=== PATIENT | female | born 1985 | race Hispanic/Latino ===

== ENCOUNTER 2023-07-11 08:08 | Inpatient (IN) | payer OTHER, SELFPAY ==
--- NOTE | ~2023-07-11 | CT_ITS ---
EXAMINATION: CT abdomen pelvis w con DATE: 07/11/2023 10:02 INDICATION: Upper abdominal pain TECHNIQUE: Computed tomography (CT) of the abdomen and pelvis was performed without intravenous contr ast. Automated exposure control and iterative reconstruction technique were employed. The dose-length product was 1506.13 mGy-cm. COMPARISON: None FINDINGS: Mild dependent atelectasis in the bilateral lower lobes. Heart size is normal. No pericardial or pleu ral effusion. Diffuse hepatic steatosis. Gallbladder, spleen, bilateral adrenal glands are normal. Th ere are retained lobulations of both kidneys. Nonobstructing 3 mm stone at a lower pole calyx o f the left kidney. 1 cm cyst at the lower pole of the right kidney. There is inflammatory stranding s urrounding the body and tail of the pancreas consistent with acute interstitial pancreatitis. There i s normal pancreatic parenchymal enhancement with no necrosis. No discrete peripancreatic fluid collec tions. Bowels including the appendix are normal. Small fat-containing umbilical hernia. Bladder is no rmal. T-shaped IUD in expected position within the anteverted uterus. Bilateral adnexa are unremarkab le. No free intraperitoneal gas or fluid. No pathologically enlarged abdominal or pelvic lymphadenopa thy. Mild thoracic and lumbar spondylosis. IMPRESSION: 1. Radiographically uncomplicated acute interstitial pancreatitis. 2. Mild diffuse hepatic steatosis. 3. IUD in expected position. 4. Small fat-containing umbilical hernia. Reviewed, dictated and finalized at location A.
--- NOTE | ~2023-07-11 | XR_ITS ---
XR ankle RT 2V 07/12/2023 13:38 INDICATION: Diabetes. Right lateral malleolus tenderness PROCEDURE: 2 views right ankle COMPARISON: No prior studies FINDINGS: Fracture, dislocation or subluxation is not identified. The soft tissues appear within norm al limits. No foreign bodies are identified. Ankle mortise intact. IMPRESSION: 1: NO ACUTE BONE OR JOINT ABNORMALITY IDENTIFIED. Reviewed, dictated and finalized at location A.
[2023-07-11 08:11] VITALS: BP 180/97; PULSE 103; RESP 20; TEMP 36.8; O2SAT 100
[2023-07-11] MEDS: SODIUM CHLORIDE 0.9% IV 1,000 ML 999 ML IV CONT ×2 (08:57→10:55)
--- NOTE | 2023-07-11 09:05 | ED.ABDPAIN ---
HPI - Abdominal Pain General Chief Complaint: Abdominal Pain Stated Complaint: vomiting Time Seen by Provider: 07/11/23 08:28 History of Present Illness HPI narrative: 37-year-old female history of diabetes and pancreatitis presented the emergency department for evaluation of increased left upper and epigastric abdominal pain. Patient states the pain feels similar to her previous pancreatitis. Patient does report associated nausea and vomiting. Patient reports the pain started last night. Patient denies any radiation of the pain to her back. Patient states she does not drink alcohol and has no prior history of gallbladder disease. Related Data Home Medications Medication Instructions Recorded Confirmed No Home Medications 07/11/23 07/11/23 Allergies Allergy/AdvReac Type Severity Reaction Status Date / Time No Known Allergies Allergy Verified 07/11/23 08:56 Review of Systems Review of Systems: All systems reviewed & are unremarkable except as noted in HPI and below PMFSH Social History Social History Smoking status: Never smoker Alcohol intake: never Substance use: never Lack of Transportation: No Lack of Food: Never True Current Housing: I Have Housing Concerned About Future Housing: No Difficulty Paying Gas/Electric Bills: No Difficulty Paying for Meds: No Currently Unemployed: No Education: Decline to Answer Difficulty w/ Childcare or Family Care: No Spiritual care concerns: No Exam Narrative: APPEARANCE: Well appearing, no pain, no distress, well-nourished. HEAD: normocephalic, atraumatic. EYES: PERRLA/EOMI, conjunctivae clear. NOSE: Normal no drainage NECK: Supple. No adenopathy, no masses. RESPIRATORY: Airway patent, respirations nonlabored. Clear to auscultation bilaterally, no rales, rhonchi, wheezing. CARDIOVASCULAR: Regular rate and rhythm without murmurs rubs or gallops. ABDOMINAL: Soft, epigastric and left upper quadrant tenderness to palpation MUSCULOSKELETAL: Moves all extremities. Strength/ROM intact, No edema, No calf tenderness. NEURO: Alert. Cranial nerves II through XII intact. Grossly intact SKIN: Warm, dry. Normal Color Course Course Emergency Course: 29-year-old female history of diabetes and pancreatitis presented the emergency department for evaluation epigastric left upper quadrant pain. Patient was treated with IV fluids, IV Zofran, IV Dilaudid and IV Protonix. CT scan was ordered to evaluate for necrotizing pancreatitis. Patient is afebrile but does have a leukocytosis of 12.7. Hemoglobin stable 11.4. Lipase was elevated at 1944, lactic acid was elevated at 2.2. Patient was treated with 2 L of normal saline. CT scan did show evidence of uncomplicated pancreatitis. Patient was updated on the results of her work-up and was offered admission but patient states she is unable to stay. Patient was educated on reasons to return to the emergency department. Patient was advised to follow a clear liquid diet provided medications for pain control. Prior to leaving [place] the patient did decide to stay. Case was discussed with the hospitalist and patient was admitted. Patient was stable at time of admission. Vital Signs Vital signs: Vital Signs Temperature 98.3 F 07/11/23 08:11 Pulse Rate 103 H 07/11/23 08:11 Respiratory Rate 20 07/11/23 08:11 Blood Pressure 180/97 H 07/11/23 08:11 Pulse Oximetry 100 07/11/23 08:11 Oxygen Delivery Room Air 07/11/23 08:11 Temperature 97.8 F 07/11/23 15:50 Pulse Rate 110 H 07/11/23 15:50 Respiratory Rate 18 07/11/23 15:50 Blood Pressure 152/102 H 07/11/23 15:50 Pulse Oximetry 95 07/11/23 15:50 Oxygen Delivery Room Air 07/11/23 17:39 MDM - Abdominal Pain Differential Diagnosis Differential diagnosis: Likely abdominal pain, acute appendicitis, calculus of kidney, constipation, diverticulitis, endometriosis, gastroenteritis, pancreatitis and small bowel obstruction Lab D
[2023-07-11 09:20] LABS: Basophils Absolute Auto 0.1 K/mm3 (0.0-0.1); Basophils Percent Auto 0.4 % (0.2-1.2); Eosinophils Percent Auto 0.2 % (0-4.4); Hematocrit 35.1 % (37.0-47.0); Hemoglobin 11.4 g/dL (12.0-15.0); Immature Granulocyte Absolute 0.07 K/mm3 (0.00-0.031); Immature Granulocyte Percent A 0.6 % (0-0.5); Lymphocytes Absolute Auto 0.91 K/mm3 (0.9-3.2); Lymphocytes Percent Auto 7.2 % (18.3-44.2); Mean Corpuscular HGB Conc 32.5 g/dl (32-36); Mean Corpuscular Hemoglobin 23.7 pg (26-34); Mean Corpuscular Volume 72.8 fl (80-100); Mean Platelet Volume 10.1 fl (7.4-10.4); Monocytes Absolute Auto 0.4 K/mm3 (0.1-0.6); Monocytes Percent Auto 3.5 % (2.6-8.5); Neutrophils Absolute Auto 11.2 K/mm3 (1.3-6.7); Neutrophils Percent Auto 88.1 % (45.5-73.1); Platelet Count Result 278 k/mm3 (150-375); Red Blood Count 4.82 M/mm3 (4.2-5.4); Red Cell Distribution Width 15.4 % (11.5-14.5); White Blood Count 12.7 K/mm3 (4.5-10.0)
[2023-07-11 09:20] LABS: Appearance Urine Clear (Clear); Bacteria Urine Rare /hpf; Bilirubin Urine Negative (Negative); Blood Urine 1+ (Negative); Budding Yeast Urine Present /hpf; Color Urine Yellow (Yellow); Glucose Urine UA 3+ mg/dL (Negative); Ketones Urine 3+ mg/dL (Negative); Leukocyte Esterase Ur 1+ LEU/UL (Negative); Nitrate Urine Negative (Negative); Non Pathogenic Casts 0-2; Protein Urine 2+ mg/dL (Negative); Specific Grav Ur 1.027 (1.001-1.035); Squamous Epithelial Cell Urine Occasional /hpf (Few); Urobilinogen Urine 0.2 mg/dL (<2.0); WBC Urine 21-50 /hpf; pH Urine 6.5 (5.0-9.0)
[2023-07-11] MEDS: HYDROmorphone HCL INJ (*CRX) 1 MG/ML SYR 0.5 MG IV PUSH ×3 (09:24→15:25)
[2023-07-11] MEDS: ONDANSETRON INJ 4 MG/2 ML VIAL IV PUSH (09:24)
[2023-07-11] MEDS: PANTOPRAZOLE SODIUM IV 40 MG VIAL IV PUSH (09:24)
[2023-07-11 09:29] LABS: Lactic Acid Reflex 2.2 mmol/L (0.7-2.0)
[2023-07-11 09:31] LABS: Add Urine Microscopic? YES
[2023-07-11 09:32] VITALS: BP 151/93; PULSE 111; RESP 13
[2023-07-11 09:33] LABS: INR 0.8; Prothrombin Time 11.9 Seconds (11.1-14.7)
[2023-07-11 09:34] LABS: Partial Thromboplastin Time 24.9 SECONDS (22.3-36.8)
[2023-07-11 09:47] LABS: Alanine Aminotransferase 14 U/L (6-35); Albumin Level 3.6 g/dL (3.5-5.1); Alkaline Phosphatase 106 U/L (38-126); Anion Gap 12 mmol/L (8-16); Aspartate Amino Transferase 22 U/L (14-36); Bilirubin,Total 0.7 mg/dL (0.2-1.3); Blood Urea Nitrogen 11 mg/dL (7-17); Calcium 8.1 mg/dL (8.4-10.2); Carbon Dioxide 19 mmol/L (22-30); Chloride 100 mmol/L (98-107); Estimated CRCL calculation 150 ml/min; Estimated Glomerular Filt Rate > 60; Glucose 351 mg/dL (65-110); Lipase 1944 U/L (23-300); Potassium 4.1 mmol/L (3.4-5.0); Sodium 131 mmol/L (137-145)
[2023-07-11 09:58] LABS: Anisocytosis 3+ (NORMAL); Microcytosis 3+ (NORMAL); Platelet Estimate Adequate (Adequate); Schistocytes None Seen (NORMAL)
[2023-07-11] MEDS: SODIUM CHLORIDE 0.9% IV 1,000 ML 125 ML IV CONT (11:33)
[2023-07-11 12:17] LABS: Reflex Lactic Acid Yes or No Add Lactic
[2023-07-11 12:56] LABS: Lactic Acid 1.3 mmol/L (0.7-2.0)
[2023-07-11 14:29] VITALS: BP 154/98; PULSE 112; RESP 18; TEMP 36.7; O2SAT 96
[2023-07-11 14:40] LABS: Glucose Point of Care 300 mg/dl (65-105)
[2023-07-11 15:28] VITALS: BMI 37.3
--- NOTE | 2023-07-11 15:30 | ADMGEN ---
This patient, Camille Epperson, was admitted to 3 [facility] Surg Room 327-01. Patient/family oriented to hospital policies and general routines including ID bracelet, bed and alarms, visiting hours, pain management, procedures, bathroom and other care routines, personal items, smoking policy, room service/diet, and visiting hours. Information on how to activate the Rapid Response Team has been discussed. Patient/Family are encouraged to report perceived risks to care and to ask questions if they do not understand what they are told or what they should do.
[2023-07-11 15:50] VITALS: BP 152/102; PULSE 110; RESP 18; TEMP 36.6; O2SAT 95
--- NOTE | 2023-07-11 17:56 | PM.IMHP ---
H&P: HPI History of Present Illness Date/Time: 07/11/23 17:56 Chief Complaint: Abdominal Pain, N/V Narrative: 37-year-old female presents here with left upper quadrant pain with past medical history of HTN, diabetes, GERD, and pancreatitis. Patient presents here with 24 hours of left upper quadrant pain and nausea/vomiting. She denies diarrhea, current alcohol use, or history of gallbladder surgery/disease/complications. ED workup revealed CT findings of acute interstitial pancreatitis with mild diffuse hepatic steatosis. Patient reports her last pancreatic flare was in 2017. Concerned for attack this past March, however was ruled out and she was informed she had GERD. she is currently denying abdominal tenderness due to pain medication administration. Has been able to tolerate clear liquids and is denying any current nausea. Has been previously told that her pancreatitis is likely due to her diabetes. She also reports that she has not been able to get her medication filled since last October. She missed an appointment with her primary and when she called to reschedule the appointment she was not able to get a hold of anybody in the office. She eventually gave up and has not had her amlodipine, metformin, losartan, or fenofibrate since. patient is also endorsing vaginal pruritus. States that it itches so much that she has given herself small abrasions. Denies any blistering, nodules, abnormal discharge. Review of Systems Review of Systems: All systems reviewed & are unremarkable except as noted in HPI and below PMFSH Past Medical History Medical History Diabetes type 2, uncontrolled GERD (gastroesophageal reflux disease) HTN (hypertension) Pancreatitis Social History Social History (Updated 07/11/23 @ 22:20 by Milena Chappell APRN) Social History: Currently lives at home with her and 2 daughters. Surrogate decision maker: Karl Epperson Code status: Full Code Smoking status: Never smoker Alcohol intake: never Substance use: never Lack of Transportation: No Lack of Food: Never True Current Housing: I Have Housing Concerned About Future Housing: No Difficulty Paying Gas/Electric Bills: No Difficulty Paying for Meds: No Currently Unemployed: No Education: Decline to Answer Difficulty w/ Childcare or Family Care: No Spiritual care concerns: No Meds Home Medications and Allergies Home Medications Medication Instructions Recorded Confirmed Type No Home Medications 07/11/23 07/11/23 History Allergies Allergy/AdvReac Type Severity Reaction Status Date / Time No Known Allergies Allergy Verified 07/11/23 08:56 Vital Signs Vital Signs - 24 hr 07/11/23 08:11 07/11/23 09:32 07/11/23 14:29 Temperature 98.3 F 98.1 F Pulse Rate 103 H 111 H 112 H Respiratory Rate 20 13 18 Blood Pressure 180/97 H 151/93 H 154/98 H Pulse Oximetry 100 96 Oxygen Delivery Room Air 07/11/23 15:50 07/11/23 17:39 Temperature 97.8 F Pulse Rate 110 H Respiratory Rate 18 Blood Pressure 152/102 H Pulse Oximetry 95 Oxygen Delivery Room Air Exam Narrative: resting in hospital bed, at bedside. Const: General: comfortable and no acute distress HENMT: Mouth: Yes moist mucous membranes Eyes: General: appearance normal, both eyes and all related structures Sclera: sclerae normal Pupils: Equal, round and reactive pupils present Resp: Effort & Inspection: normal respiratory effort Auscultation: clear to auscultation bilaterally Cardio: Rate: regular rate Rhythm: regular rhythm Other: S1-S2 present without murmur, rub, ectopy GI: GI Palp: Yes Soft to palpation Auscultation: normal bowel sounds Other: Nontender, no guarding. Skin: General skin exam: normal color and no rashes or lesions noted Wounds: no wounds Neuro: Speech: normal speech Sensory Exam: normal sens
[2023-07-11] MEDS: amLODIPine BESYLATE 2.5 MG TABLET PO (18:37)
[2023-07-11] MEDS: FLUCONAZOLE 150 MG TABLET PO (18:37)
[2023-07-11 19:58] VITALS: BP 167/98; PULSE 109; RESP 18; TEMP 36.6; O2SAT 99
[2023-07-11] MEDS: ACETAMINOPHEN 500 MG TABLET PO (20:26)
[2023-07-11] MEDS: INSULIN ASPART (*BKC) 100 UNITS/ML SUB-Q (20:26)
[2023-07-11 20:40] LABS: Glucose Point of Care 292 mg/dl (65-105)
[2023-07-11 21:50] VITALS: O2SAT 98
[2023-07-12] MEDS: HYDROmorphone HCL INJ (*CRX) 1 MG/ML SYR 0.5 MG IV PUSH ×2 (04:50→13:12)
[2023-07-12 06:00] VITALS: BP 157/84; PULSE 103; RESP 16; TEMP 36.4; O2SAT 94
[2023-07-12 07:52] LABS: Hematocrit 32.3 % (37.0-47.0); Hemoglobin 9.6 g/dL (12.0-15.0); Mean Corpuscular HGB Conc 29.7 g/dl (32-36); Mean Corpuscular Hemoglobin 21.7 pg (26-34); Mean Corpuscular Volume 73.1 fl (80-100); Mean Platelet Volume 9.9 fl (7.4-10.4); Platelet Count Result 253 k/mm3 (150-375); Red Blood Count 4.42 M/mm3 (4.2-5.4); Red Cell Distribution Width 15.5 % (11.5-14.5); White Blood Count 11.7 K/mm3 (4.5-10.0)
[2023-07-12 08:01] LABS: Alanine Aminotransferase 10 U/L (6-35); Albumin Level 3.4 g/dL (3.5-5.1); Alkaline Phosphatase 89 U/L (38-126); Anion Gap 7 mmol/L (8-16); Aspartate Amino Transferase 17 U/L (14-36); Bilirubin,Total 0.8 mg/dL (0.2-1.3); Blood Urea Nitrogen 8 mg/dL (7-17); Calcium 8.2 mg/dL (8.4-10.2); Carbon Dioxide 21 mmol/L (22-30); Chloride 103 mmol/L (98-107); Estimated CRCL calculation 183 ml/min; Estimated Glomerular Filt Rate > 60; Glucose 281 mg/dL (65-110); Lipase 475 U/L (23-300); Potassium 3.7 mmol/L (3.4-5.0); Sodium 131 mmol/L (137-145)
[2023-07-12] MEDS: amLODIPine BESYLATE 2.5 MG TABLET PO (08:19)
[2023-07-12] MEDS: ENOXAPARIN 40 MG/0.4 ML SYRINGE SUB-Q (08:19)
[2023-07-12] MEDS: metFORMIN HCL 500 MG TABLET PO (08:19)
[2023-07-12] MEDS: FENOFIBRATE 160 MG TABLET PO (08:19)
[2023-07-12 08:23] LABS: Hemoglobin A1C 12.5 % (<5.7)
[2023-07-12] MEDS: INSULIN ASPART (*BKC) 100 UNITS/ML SUB-Q ×2 (08:23→12:17)
[2023-07-12 08:39] LABS: Glucose Point of Care 272 mg/dl (65-105)
[2023-07-12 11:39] LABS: Glucose Point of Care 312 mg/dl (65-105)
--- NOTE | 2023-07-12 12:28 | PM.IMPN ---
Progress Note: A&P Assessment and Plan (1) Pancreatitis: Code(s): K85.90 - Acute pancreatitis without necrosis or infection, unspecified Status: Acute Assessment and Plan: 1. pancreatitis CT abd/pelvis w con 1. Radiographically uncomplicated acute interstitial pancreatitis. 2. Mild diffuse hepatic steatosis. 3. IUD in expected position. 4. Small fat-containing umbilical hernia. Dilaudid 0.5 mg p.r.n. and TYL p.r.n. fluid resuscitated in the emergency department w/2L NS, NS now infusing at 125 mL/hour Zofran p.r.n. advanced diet as tolerated recheck cbc, cmp, lipase in AM (2) HTN (hypertension): Code(s): I10 - Essential (primary) hypertension Status: Acute Assessment and Plan: 2. HTN previously on amlodipine 2.5 mg daily and losartan 100 mg daily will restart amlodipine 2.5 mg daily, assess for toleration monitor blood pressure (3) Diabetes type 2, uncontrolled: Status: Acute Assessment and Plan: 3. diabetes, type 2 hypoglycemia protocol POC blood glucose ACHS correct regimen ordered - low dose TIDWM and HS A1C 12.5% Metformin 1000 mg BID Lantus 10 units HS (4) Vaginal itching: Code(s): N89.8 - Other specified noninflammatory disorders of vagina Status: Acute Assessment and Plan: 4. vaginal itching clinical impression of candidal vulvovaginitis Diflucan 150 mg PO x1 administered patient educated to follow up with Women's Health provider or PCP if symptoms do not resolve (5) Hyperlipidemia: Code(s): E78.5 - Hyperlipidemia, unspecified Status: Acute Assessment and Plan: Chronic Conditions - HLD: restart fenofibrate, lipid panel ordered (6) UTI (urinary tract infection): Code(s): N39.0 - Urinary tract infection, site not specified Status: Acute Assessment and Plan: U/A with WBC, +1 Leukocyte, and rare bacteria and large presence of glucose active yeast infection could have UTI as well Rocephin added Plan Diet: advanced as tolerated GI Prophylaxis: not currently indicated DVT Prophylaxis: SCDs, Lovenox 40 Lines: pIV Code Status: Full Code Subjective Date/time seen: 07/12/23 12:28 Interval history: HPI obtained from chart, 37-year-old female presents here with left upper quadrant pain with past medical history of HTN, diabetes, GERD, and pancreatitis. Patient presents here with 24 hours of left upper quadrant pain and nausea/vomiting.? She denies diarrhea, current alcohol use, or history of gallbladder surgery/disease/complications. ? ED workup revealed CT findings of acute interstitial pancreatitis with mild diffuse hepatic steatosis.? Patient reports her last pancreatic flare was in 2018.? Concerned for attack this past March, however was ruled out and she was informed she had GERD.? she is currently denying abdominal tenderness due to pain medication administration.? Has been able to tolerate clear liquids and is denying any current nausea. ? Has been previously told that her pancreatitis is likely due to her diabetes.? She also reports that she has not been able to get her medication filled since last October.? She missed an appointment with her primary and when she called to reschedule the appointment she was not able to get a hold of anybody in the office.? She eventually gave up and has not had her amlodipine, metformin, losartan, or fenofibrate since.? patient is also endorsing vaginal pruritus.? States that it itches so much that she has given herself small abrasions.? Denies any blistering, nodules, abnormal discharge. 07/12- Review of Systems Review of Systems: All systems reviewed & are unremarkable except as noted in HPI and below Exam Narrative: General: well appearing, well developed, well nourished, appears stated age. HEENT: normocephalic, atraumatic. Mucous membranes moist. EOMI, PERRLA, bilateral sclera anicteric, no co
--- NOTE | 2023-07-12 13:53 | PM.DS ---
DS: Admitting Diagnosis Discharge Date 07/12 Admitting Diagnosis Abdominal pain DS: Discharge Diagnosis Discharge Diagnosis (1) Pancreatitis: Code(s): K85.90 - Acute pancreatitis without necrosis or infection, unspecified Status: Acute (2) HTN (hypertension): Code(s): I10 - Essential (primary) hypertension Status: Acute (3) Diabetes type 2, uncontrolled: Status: Acute (4) Vaginal itching: Code(s): N89.8 - Other specified noninflammatory disorders of vagina Status: Acute (5) Hyperlipidemia: Code(s): E78.5 - Hyperlipidemia, unspecified Status: Acute (6) UTI (urinary tract infection): Code(s): N39.0 - Urinary tract infection, site not specified Status: Acute Plan 1.? pancreatitis ?CT abd/pelvis w con 1. Radiographically uncomplicated acute interstitial pancreatitis. 2. Mild diffuse hepatic steatosis. 3. IUD in expected position. 4. Small fat-containing umbilical hernia. ?Dilaudid 0.5 mg p.r.n. and TYL p.r.n. ?fluid resuscitated in the emergency department w/2L NS,? NS now infusing at 125 mL/hour ?Zofran p.r.n. ?advanced diet as tolerated ?recheck cbc, cmp, lipase in AM 2.? HTN ?previously on amlodipine 2.5 mg daily and losartan 100 mg daily ?will restart amlodipine 2.5 mg daily, assess for toleration ?monitor blood pressure 3.? diabetes, type 2 ?hypoglycemia protocol ?POC blood glucose ACHS ?correct regimen ordered - low dose TIDWM and HS ?A1C ordered ?previously on metformin 1000 mg b.i.d., will restart at 500 mg b.i.d. 4.? vaginal itching ?clinical impression of candidal vulvovaginitis ?Diflucan 150 mg PO x1 administered ?patient educated to follow up with Women's Health provider or PCP if symptoms do not resolve 5. UTI IV rocephin and transition to Augment at d/c Patient has dysuria Chronic Conditions - HLD: restart fenofibrate, lipid panel ordered - patient will need to reestablish with a PCP, will need prescriptions at discharge Diet: advanced as tolerated GI Prophylaxis:? not currently indicated DVT Prophylaxis:? SCDs, Lovenox 40 Lines: pIV Code Status: Full Code DS: Summary Hospital Course Hospital Course: 37-year-old female presents here with left upper quadrant pain with past medical history of HTN, diabetes, GERD, and pancreatitis. Patient presents here with 24 hours of left upper quadrant pain and nausea/vomiting.? She denies diarrhea, current alcohol use, or history of gallbladder surgery/disease/complications. ? ED workup revealed CT findings of acute interstitial pancreatitis with mild diffuse hepatic steatosis.? Patient reports her last pancreatic flare was in 2018.? Concerned for attack this past March, however was ruled out and she was informed she had GERD.? she is currently denying abdominal tenderness due to pain medication administration.? Has been able to tolerate clear liquids and is denying any current nausea. ? Has been previously told that her pancreatitis is likely due to her diabetes.? She also reports that she has not been able to get her medication filled since last October.? She missed an appointment with her primary and when she called to reschedule the appointment she was not able to get a hold of anybody in the office.? She eventually gave up and has not had her amlodipine, metformin, losartan, or fenofibrate since.? patient is also endorsing vaginal pruritus.? States that it itches so much that she has given herself small abrasions.? Denies any blistering, nodules, abnormal discharge. 07/12-patient's abdominal pain has resolved and she is tolerating a low-fat diet for lunch. She denies nausea or vomiting. She would like to discharge home today. I am starting her on Lantus 10 units at night and repeat prescribing her metformin a 1000 mg p.o. b.i.d.. Her hemoglobin A1c was 12.5%. She already knows how to administer insulin as she has previously been on insulin in the past. She feels comfortable w
[2023-07-12 14:00] VITALS: BP 157/92; PULSE 85; RESP 16; TEMP 36.7; O2SAT 96
== END 2023-07-12 15:30 | disposition home or self-care (01) | DRG 282 ==
LOC: ANHED 11:22 → ANH3MEDSUR 07-12 05:47
PROVIDERS: Student in an Organized Health Care Education/Training Program; Admitting Provider Chiropractor; Emergency Provider Emergency Medicine; Visit Provider Nurse Practitioner Acute Care
DX: K85.80 Other acute pancreatitis without necrosis or infection (principal); K76.0 Fatty (change of) liver, not elsewhere classified; E11.69 Type 2 diabetes mellitus with other specified complication; B37.31 Acute candidiasis of vulva and vagina; I10 Essential (primary) hypertension; E78.5 Hyperlipidemia, unspecified; N39.0 Urinary tract infection, site not specified; K21.9 Gastro-esophageal reflux disease without esophagitis; S30.814A Abrasion of vagina and vulva, initial encounter; X58.XXXA Exposure to other specified factors, initial encounter; Z91.148 Patient's other noncompliance with medication regimen for other reason; Z91.198 Patient's noncompliance with other medical treatment and regimen for other reason
CPT/HCPCS: 36415; 73600; 74177; 80053; 81001; 81025; 82948; 83036; 83605; 83690; 85025; 85027; 85610; 85730; 87077; 87086; 87088; 96361; 96374; 96375; 99285; A9270; C9113; J0696; J1170; J1650; J1815; J2405; J7030; Q9967